=== PATIENT | male | born 1935 | race Two or more races ===

== ENCOUNTER → 2017-12-26 | Outpatient (CLI) | payer MEDICARE, MEDICAID | END | disposition home or self-care (01) | LOC: PETCFH 07:23 | PROVIDERS: ATTEND Internal Medicine Hematology & Oncology | DX: R59.0 Localized enlarged lymph nodes (principal) | CPT/HCPCS: 78815; A9552 ==

== ENCOUNTER 2018-01-05 09:30 | Day surgery (SDC) | payer MEDICARE, MEDICAID ==
[~2018-01-05] VITALS: Ht 160 cm; Wt 58.0 kg
[2018-01-05] MEDS ORDERED: LACTATED RINGERS 1,000 ML IV SCH (10:39)
[2018-01-05] MEDS ORDERED: OMEP40CA6 PO (10:41)
[2018-01-05] MEDS ORDERED: HYDR-3240 PO (10:41)
[2018-01-05 10:43] VITALS: BP 138/85
[2018-01-05] MEDS ORDERED: FENTANYL PF 250 MCG/5ML ONE (14:37)
[2018-01-05] MEDS ORDERED: PROPOFOL 10 MG/ML, 20ML ONE (14:44)
[2018-01-05] MEDS ORDERED: CEFAZOLIN 1,000 MG ONE (14:44)
[2018-01-05] MEDS ORDERED: ACETAMINOPHEN 325 MG TABLET PO PRN (15:00)
[2018-01-05] MEDS ORDERED: OXYcodone 5 MG/5 ML ORAL.SOL UDC PO PRN (15:00)
[2018-01-05] MEDS ORDERED: MORPHINE SULFATE 4 MG/ML, 1ML IVPush PRN (15:00)
[2018-01-05] MEDS ORDERED: ONDANSETRON 2MG/ML, 2ML IV PRN (15:00)
[2018-01-05] MEDS ORDERED: MEPERIDINE/PF 25MG/0.5ML IVPush PRN (15:00)
[2018-01-05] MEDS ORDERED: FENTANYL PF 100 MCG/2ML IV PRN (15:00)
[2018-01-05] MEDS ORDERED: BUPIVACAINE/PF-EPI 0.5% 1:200K INFIL ONE (15:05)
== END 2018-01-05 17:00 | disposition home or self-care (01) ==
LOC: OUT 09:30
PROVIDERS: ATTEND Surgery
DX: Z45.2 Encounter for adjustment and management of vascular access device (principal); C85.90 Non-Hodgkin lymphoma, unspecified, unspecified site; K21.9 Gastro-esophageal reflux disease without esophagitis; Z98.890 Other specified postprocedural states; Z72.89 Other problems related to lifestyle
CPT/HCPCS: 36561; 38500; 77001; 88305; 88341; 88342; 88360; 93005; C1788; J0690; J1644; J2704; J3010; J7120; G0461